=== PATIENT | female | born 1960 | race Caucasian/White ===

== ENCOUNTER 2017-04-02 19:49 | Emergency (ER) | payer BC ==
[2017-04-02 20:09] VITALS: BP 138/91
[2017-04-02] MEDS ORDERED: Triamcinolone Acetonide 40 MG/ML 1 ML MDV INJECT ONE (20:28)
--- NOTE | 2017-04-03 06:29 | EDM.PDOC ---
ED HPI GENERAL MEDICAL PROBLEM - General Chief Complaint: Upper Extremity Injury/Pain Stated Complaint: left shoulder pain Time Seen by Provider: 04/02/17 19:55 Source of Information: Reports: Patient History Limitations: Reports: No Limitations - History of Present Illness INITIAL COMMENTS - FREE TEXT/NARRATIVE: Pt. states that she had a pneumococcal vaccine in the L upper arm earlier today. She states that she now in experiencing discomfort and difficulty moving the R arm. No fever or chills. No cellulitis. She states that she has never had issues with post-immunization discomfort in the past. Onset: Today Location: Reports: Upper Extremity, Left Quality: Reports: Ache Severity: Moderate Improves with: Reports: Rest Worsens with: Reports: Movement Associated Symptoms: Reports: No Other Symptoms Left Shoulder Pain Score (Numeric/FACES): 8 - Related Data Allergies Allergy/AdvReac Type Severity Reaction Status Date / Time rosuvastatin calcium Allergy Cannot Verified 04/02/17 20:03 [From Crestor] Remember atorvastatin calcium AdvReac Muscle Verified 04/02/17 20:03 [From Lipitor] Aches cats Allergy Anaphylactic Uncoded 04/02/17 20:03 Shock Enviromental Allergy Cannot Uncoded 04/02/17 20:03 Remember Home Meds: Home Meds Ascorbic Acid [Vitamin C] 1,000 mg PO DAILY 03/18/15 [History] Aspirin 81 mg PO DAILY 03/18/15 [History] Baclofen [Baclofen] 1 tab PO TID 03/18/15 [History] Cholecalciferol (Vitamin D3) [Vitamin D3] 2 tab PO DAILY 03/18/15 [History] Cyanocobalamin (Vitamin B-12) [B-12] 1,000 mcg PO DAILY 03/18/15 [History] Hydrochlorothiazide [Hydrochlorothiazide] 1 tab PO DAILY 03/18/15 [History] Lidocaine 5% [Lidoderm 5%] 700 mg TOP Q24H PRN 03/18/15 [History] Naproxen 500 mg PO BID 03/18/15 [History] Nebivolol HCl [Bystolic] 5 mg PO DAILY 03/18/15 [History] [place]-3 Fatty Acids [B[place]ield-3] 2 cap PO DAILY 03/18/15 [History] valACYclovir HCl [valACYclovir] 1 tab PO BID PRN 03/18/15 [History] Morphine Sulfate 1 tab PO QID PRN 04/02/17 [History] Morphine [MS Contin] 1 tab PO DAILY 04/02/17 [History] Past Medical History HEENT History: Reports: Allergic Rhinitis Cardiovascular History: Reports: Blood Clots/VTE/DVT, High Cholesterol Other Cardiovascular History: Varicose veins Respiratory History: Gastrointestinal History: Reports: Colon Polyp, Hemorrhoids Other Gastrointestinal History: Colitis. Gastric ulcer Genitourinary History: Reports: None PRIEST History: Reports: Musculoskeletal History: Reports: Back Pain, Chronic, Osteoarthritis Other Musculoskeletal History: Varicose vein surgery Neurological History: Reports: None Psychiatric History: Reports: Anxiety Endocrine/Metabolic History: Reports: Obesity/BMI 30+ Hematologic History: Reports: None Other Hematologic History: HX sepsis Oncologic (Cancer) History: Reports: None Dermatologic History: Reports: None - Past Surgical History Head Surgeries/Procedures: Reports: None HEENT Surgical History: Reports: Naso-Sinus Surgery GI Surgical History: Reports: Colonoscopy, Lysis of Adhesions, Polypectomy Female Surgical History: Reports: Hysterectomy Neurological Surgical History: Reports: Lumbar Spine, Thoracic Spine Musculoskeletal Surgical History: Reports: Joint Replacement, Knee Replacement Social & Family History - Tobacco Use Smoking Status *Q: Current Every Day Smoker Years of Tobacco use: 20 Packs/Tins Daily: 0.5 Used Tobacco, but Quit: Yes Second Hand Smoke Exposure: No - Alcohol Use Days Per Week of Alcohol Use: 2 Number of Drinks Per Day: 1 Total Drinks Per Week: 2 - Recreational Drug Use Recreational Drug Use: No Drug Use in Last 12 Months: No Review of Systems - Review of Systems Review Of Systems: See Below Constitutional: Reports: No Symptoms Mouth/Throat: Reports: No Symptoms Respiratory: Reports: No Symptoms Cardiovascular: Reports: No Symptoms GI/Abdominal: Reports: No Symptoms Genitourinary: Reports: No Symptoms Musculoskeletal: Reports: Arm Pain, Muscle Stiffness Skin: Reports: No Symptoms Neurological: Reports: No Symptoms Psychiatric: Reports: No Symptoms ED EXAM, GENERAL - Physical Exam Exam: See Below Exam Limited By: No Limitations General Appearance: Alert, WD/WN, No Apparent Distress Neck: Normal Inspection, Supple, Non-Tender, Full Range of Motion Respiratory/Chest: No Respiratory Distress, Lungs Clear, Normal Breath Sounds, No Accessory Muscle Use, Chest Non-Tender Cardiovascular: Normal Peripheral Pulses, Regular Rate, Rhythm, No Edema, No Gallop, No JVD, No Murmur, No Rub Peripheral Pulses: 2+: Radial (L), Radial (R) GI/Abdominal: Normal Bowel Sounds, Soft, Non-Tender, No Organomegaly, No Distention, No Abnormal Bruit, Pelvis Stable Back Exam: Normal Inspection Extremities: Normal Inspection, Non-Tender, No Pedal Edema, Normal Capillary Refill, Limited Range of Motion Neurological: Alert, Oriented, CN II-XII Intact, Normal Cognition, Normal Gait, Normal Reflexes, No Motor/Sensory Deficits Psychiatric: Normal Affect, Normal Mood Skin Exam: Warm, Dry, Intact, Normal Color, No Rash Lymphatic: No Adenopathy Course - Vital Signs Last Recorded V/S: Last Vital Signs Temp 36.4 C 04/02/17 20:06 Pulse 70 04/02/17 20:06 Resp 18 04/02/17 20:06 BP 138/91 H 04/02/17 20:06 Pulse Ox 99 04/02/17 20:06 - Orders/Labs/Meds Meds: Medications Discontinued Medications Generic Name Dose Route Start Last Admin Trade Name Carlo PRN Reason Stop Dose Admin Triamcinolone Acetonide 40 mg 04/02/17 20:28 04/02/17 20:45 Kenalog-40 INJECT 04/02/17 20:29 40 mg ONETIME ONE Administration Departure - Departure Time of Disposition: 20:47 Disposition: Home, Self-Care 01 Condition: Good Clinical Impression: Reaction to pneumococcal immunization - Discharge Information Instructions: Post-Injection Inflammatory Reaction Referrals: Dianne Weber DO [Primary Care Provider] - Forms: ED Department Discharge Additional Instructions: Ice your arm as much as possible. Even though it hurts, it's important to move your arm as much as possible, as little at a time. Continue with naproxen and morphine for discomfort. - Assessment/Plan Assessment:: immunization reaction Plan: Pt. was reassured. Advised to use the extremity and move it as much as possible. Ice the area. Use the morphine and naproxen for pain control.
== END 2017-04-02 20:47 | disposition home or self-care (01) ==
LOC: VM.ED 19:49
DX: T88.1XXA Other complications following immunization, not elsewhere classified, initial encounter (principal); M25.512 Pain in left shoulder; F17.210 Nicotine dependence, cigarettes, uncomplicated; E78.00 Pure hypercholesterolemia, unspecified; Z79.82 Long term (current) use of aspirin; Z79.891 Long term (current) use of opiate analgesic; Z79.899 Other long term (current) drug therapy; Z88.8 Allergy status to other drugs, medicaments and biological substances; Z91.09 Other allergy status, other than to drugs and biological substances
CPT/HCPCS: 96372; 99283; J3301

== ENCOUNTER 2017-05-06 07:26 | Day surgery (SDC) | payer BC ==
[~2017-05-06 07:26] MED LIST: Lactated Ringers 1,000 ML IV SCH
[2017-05-06] MEDS ORDERED: Propofol 200 MG/20 ML SDV ONE (09:29)
[2017-05-06] MEDS ORDERED: fentaNYL 100 MCG/2 ML SDV ONE (09:29)
[2017-05-06 10:11] VITALS: BP 125/75
--- NOTE | 2017-05-07 09:36 | OR ---
PREOPERATIVE DIAGNOSIS: History of colon polyps. POSTOPERATIVE DIAGNOSIS: History of colon polyps. PROCEDURE PERFORMED: Aborted colonoscopy. INDICATION: The patient is a 56-year-old female who presents for repeat colonoscopy several years after polyps were found. PROCEDURE DETAILS: This was done in the procedure room. Sedation was given per Anesthesia. She was placed in left lateral position. First, a rectal exam was done. There were very large pieces of hard stool within the lower rectum. I did attempt to place the scope into the rectum. I was able to get about 1/[address] up to the rectum before I again ran into multiple large pieces of hard stool. Due to the amount of stool present, I was really unable to find the pathway further into the rectum and I felt that proceeding any further at this point was as the visualization be amenable at this point. The procedure was aborted. BKD: 05/06/2017 09:52:34 MODL: 05/06/2017 15:09:33 /[id number]
== END 2017-05-06 10:55 | disposition home or self-care (01) ==
LOC: VM.SDS 07:26
PROVIDERS: ATTEND Surgery
DX: Z12.11 Encounter for screening for malignant neoplasm of colon (principal); I10 Essential (primary) hypertension; E78.5 Hyperlipidemia, unspecified; Z86.010 Personal history of colon polyps; Z88.8 Allergy status to other drugs, medicaments and biological substances; Z79.891 Long term (current) use of opiate analgesic; Z90.710 Acquired absence of both cervix and uterus; Z79.899 Other long term (current) drug therapy; F17.210 Nicotine dependence, cigarettes, uncomplicated
CPT/HCPCS: J2704; J3010; J7120

== ENCOUNTER 2018-04-30 11:49 | Emergency (ER) | payer BC ==
[2018-04-30 12:06] VITALS: BP 115/70
[2018-04-30] MEDS ORDERED: Sodium Chloride 0.9% 10 ML Syringe FLUSH PRN (12:10)
[2018-04-30] MEDS: Sodium Chloride 0.9% 1,000 ML IV ONE (12:37)
[2018-04-30] MEDS: Ondansetron 4 MG/2 ML SDV IVPUSH ONE (12:38)
[2018-04-30] MEDS: Pantoprazole 40 MG Vial IVPUSH ONE (12:44)
[2018-04-30 12:48] LABS: CHLORIDE,CL 105 mmol/L (98-107); SODIUM,NA 144 mmol/L (136-145)
[2018-04-30 12:50] LABS: ANION GAP 11.6 mmol/L (10-20)
[2018-04-30] MEDS: Iopamidol 612 MG/ML 100 ML Bottle IVPUSH ONE (13:05)
--- NOTE | 2018-04-30 13:21 | EDM.PDOC ---
ED HPI GENERAL MEDICAL PROBLEM - General Chief Complaint: Gastrointestinal Problem Stated Complaint: WEAK NAUSIA Time Seen by Provider: 04/30/18 12:00 Source of Information: Reports: Patient, Family History Limitations: Reports: No Limitations - History of Present Illness INITIAL COMMENTS - FREE TEXT/NARRATIVE: Patient reports that for the last month or so she has been having upset stomach with nausea and vomiting. Last week she started vomiting black liquid and upon EGD on Saturday04/28/18 she was diagnosed with ulcers. She is unsure where and how many. She is also unsure whether or not they were actively bleeding. States she is awating results for H. Pylori as well. She began to have black, tarry stools today and has had two of them. She still is nauseated with no emesis. She also complains of some SOB, dizziness and being light headed. Denies headache, chest, neck or jaw pain, no problems with urination, no complaints of diarrhea. 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 Does smoke but denies drugs or alcohol. Onset: Gradual Duration: Intermittent Location: Reports: Abdomen Quality: Reports: Ache Severity: Moderate Associated Symptoms: Reports: Nausea/Vomiting Abdomen Pain Score (Numeric/FACES): 5 - Related Data Allergies Allergy/AdvReac Type Severity Reaction Status Date / Time rosuvastatin calcium Allergy Cannot Verified 04/30/18 12:07 [From Crestor] Remember atorvastatin calcium AdvReac Muscle Verified 04/30/18 12:07 [From Lipitor] Aches cats Allergy Anaphylactic Uncoded 05/06/17 07:43 Shock Enviromental Allergy Cannot Uncoded 05/06/17 07:43 Remember Home Meds: Home Meds Aspirin 81 mg PO DAILY 03/18/15 [History] Baclofen 20 mg PO TID 03/18/15 [History] Hydrochlorothiazide 25 mg PO DAILY 03/18/15 [History] Lidocaine 5% [Lidoderm 5%] 700 mg TOP Q24H PRN 03/18/15 [History] Naproxen 500 mg PO BID 03/18/15 [History] Nebivolol HCl [Bystolic] 2.5 mg PO DAILY 03/18/15 [History] valACYclovir HCl [valACYclovir] 1 gm PO BID PRN 03/18/15 [History] Morphine Sulfate 15 mg PO QID PRN 04/02/17 [History] Morphine [MS Contin] 30 mg PO DAILY 04/02/17 [History] Ferrous Sulfate 325 mg PO BID 05/01/17 [History] Pantoprazole Sodium [Protonix] 40 mg PO DAILY 05/01/17 [History] Ascorbic Acid [Vitamin C] 100 mg PO DAILY 04/30/18 [History] Cholecalciferol (Vitamin D3) [Vitamin D3] 2,000 unit PO DAILY 04/30/18 [History] Cyanocobalamin (Vitamin B-12) [B-12] 1,000 mcg PO DAILY 04/30/18 [History] Furosemide 20 mg PO DAILY PRN 04/30/18 [History] HYDROmorphone [Dilaudid] 2 mg PO Q4H PRN 04/30/18 [History] [place]-3 Fatty Acids [[place]-3] 1 tab PO DAILY 04/30/18 [History] Omeprazole 40 mg PO DAILY 04/30/18 [History] Sucralfate 1 gm PO QID 04/30/18 [History] Past Medical History HEENT History: Reports: Allergic Rhinitis Cardiovascular History: Reports: Blood Clots/VTE/DVT, High Cholesterol, Hypertension Other Cardiovascular History: Varicose veins Respiratory History: Gastrointestinal History: Reports: Colon Polyp, Hemorrhoids Other Gastrointestinal History: Colitis. 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: Musculoskeletal History: Reports: Arthritis, Back Pain, Chronic, Fibromyalgia, Osteoarthritis Other Musculoskeletal History: Varicose vein surgery Neurological History: Reports: None Psychiatric History: Reports: Anxiety Endocrine/Metabolic History: Reports: Obesity/BMI 30+ Hematologic History: Reports: None Other Hematologic History: HX sepsis Oncologic (Cancer) History: Reports: None Dermatologic History: Reports: None - Past Surgical History Head Surgeries/Procedures: Reports: None HEENT Surgical History: Reports: Naso-Sinus Surgery Cardiovascular Surgical History: Reports: Varicose, Other (See Below) Other Cardiovascular Surgeries/Procedures: SPLENECTOMY GI Surgical History: Reports: Colonoscopy, EGD, Lysis of Adhesions, Polypectomy Other GI Surgeries/Procedures: Spleenectomy. Laparoscpy Female Surgical History: Reports: Hysterectomy Neurological Surgical History: Reports: Lumbar Spine, Thoracic Spine Other Neurological Surgeries/Procedures: REMOVED TUMOR FROM SPINAL CORD Musculoskeletal Surgical History: Reports: Joint Replacement, Knee Replacement Other Musculoskeletal Surgeries/Procedures:: Spinal cord tumor Social & Family History - Tobacco Use Smoking Status *Q: Current Every Day Smoker Years of Tobacco use: 30 Packs/Tins Daily: 1 ED ROS GENERAL - Review of Systems Review Of Systems: See Below Constitutional: Reports: Fatigue HEENT: Reports: No Symptoms Respiratory: Reports: Shortness of Breath Cardiovascular: Reports: No Symptoms Endocrine: Reports: Fatigue GI/Abdominal: Reports: Abdominal Pain, Black Stool, Nausea, Vomiting : Reports: No Symptoms Musculoskeletal: Reports: No Symptoms Skin: Reports: No Symptoms Neurological: Reports: Dizziness Psychiatric: Reports: No Symptoms Hematologic/Lymphatic: Reports: Anemia Immunologic: Reports: No Symptoms ED EXAM, GI/ABD - Physical Exam Exam: See Below Exam Limited By: No Limitations General Appearance: Alert, WD/WN, Mild Distress Eyes: Bilateral: Normal Appearance, EOMI Ears: Normal TMs Nose: Normal Inspection, Normal Mucosa, No Blood Throat/Mouth: Normal Inspection, Normal Lips, Normal Teeth, Normal Gums, Normal Oropharynx, Normal Voice, No Airway Compromise Head: Atraumatic, Normocephalic Neck: Normal Inspection, Supple, Non-Tender, Full Range of Motion Respiratory/Chest: No Respiratory Distress, Lungs Clear, Normal Breath Sounds, No Accessory Muscle Use, Chest Non-Tender Cardiovascular: Normal Peripheral Pulses, Regular Rate, Rhythm, No Edema, No Gallop, No JVD, No Murmur, No Rub GI/Abdominal Exam: Normal Bowel Sounds, Soft, Non-Tender, No Organomegaly, No Distention, No Abnormal Bruit, No Mass, Pelvis Stable Back Exam: Normal Inspection, Full Range of Motion, NT Extremities: Normal Inspection, Normal Range of Motion, Non-Tender, Normal Capillary Refill, No Pedal Edema Neurological: Alert, Oriented, CN II-XII Intact, Normal Cognition, Normal Gait, Normal Reflexes, No Motor/Sensory Deficits Psychiatric: Normal Affect, Normal Mood Skin Exam: Warm, Dry, Intact, Pallor Lymphatic: No Adenopathy EKG INTERPRETATION EKG Date: 04/30/18 Time: 12:41 Rhythm: NSR Rate (Beats/Min): 87 Petroleum: RAD-Right Petroleum Deviation P-Wave: Present QRS: Normal ST-T: Other (non specific t wave abnormality) Course - Vital Signs Last Recorded V/S: Last Vital Signs Temp 37.2 C 04/30/18 11:55 Pulse 98 04/30/18 11:55 Resp 18 04/30/18 11:55 BP 115/70 04/30/18 11:55 Pulse Ox 100 04/30/18 11:55 - Orders/Labs/Meds Orders: Active Orders 24 hr Category Date Time Status EKG 12 Lead [EKG Documentation Completion] [RC] STAT Care 04/30/18 12:11 Ordered Abdomen Pelvis w Cont [CT] Stat Exams 04/30/18 12:10 Ordered Sodium Chloride 0.9% [Normal Saline] 1,000 ml Med 04/30/18 12:31 Ordered IV ONETIME Sodium Chloride 0.9% [Saline Flush] Med 04/30/18 12:10 Ordered 10 ml FLUSH ASDIRECTED PRN Saline Lock Insert [OM.PC] Routine Oth 04/30/18 12:10 Ordered Medication Orders Sodium Chloride (Normal Saline) 1,000 mls @ 999 mls/hr IV ONETIME ONE Stop: 04/30/18 13:31 Last Admin: 04/30/18 12:37 Dose: 999 mls/hr Sodium Chloride (Saline Flush) 10 ml FLUSH ASDIRECTED PRN PRN Reason: Keep Vein Open Labs: Laboratory Tests 04/30/18 04/30/18 04/30/18 Range/Units 12:20 12:20 12:20 WBC 7.9 (4.0-10.0) x10^3/uL RBC 3.23 L (4.00-5.50) x10^6/uL Hgb 9.0 L (12.0-16.0) g/dL Hct 28.5 L (33.0-47.0) % MCV 88.2 (78.0-93.0) fL MCH 27.9 (26.0-32.0) pg MCHC 31.6 L (32.0-36.0) g/dL RDW Coeff of Chelsey 14.3 (10.0-15.0) % Plt Count 293 (130-400) x10^3/uL Add Manual Diff Yes Neutrophils % (Manual) 73 (50-80) % Lymphocytes % (Manual) 19 L (25-50) % Monocytes % (Manual) 4 (2-11) % Eosinophils % (Manual) 4 (0-4) % Platelet Estimate Adequate Hypochromasia 1+ slight H Anisocytosis 2+ moderate H PT 10.7 (9.6-11.4) SEC INR 1.0 L (2.0-3.5) Sodium 144 (136-145) mmol/L Potassium 3.6 (3.5-5.1) mmol/L Chloride 105 (98-107) mmol/L Carbon Dioxide 31 (21-32) mmol/L Anion Gap 11.6 (10-20) mmol/L BUN 33 H (7-18) mg/dL Creatinine 0.6 (0.55-1.02) mg/dL Est Cr Clr Drug Dosing TNP Estimated GFR (MDRD) > 60 Glucose 101 (74-106) mg/dL Calcium 8.5 (8.5-10.1) mg/dL Corrected Calcium 9.38 (8.5-10.1) mg/dL Magnesium 1.5 L (1.8-2.4) mg/dL Total Bilirubin 0.3 (0.2-1.0) mg/dL AST 11 L (15-37) U/L ALT 14 (14-59) U/L Alkaline Phosphatase 66 (46-116) U/L Troponin I < 0.017 (<=0.056) ng/mL C-Reactive Protein < 0.2 (<=0.9) mg/dL Total Protein 5.6 L (6.4-8.2) g/dL Albumin 2.9 L (3.4-5.0) g/dL Globulin 2.7 Albumin/Globulin Ratio 1.07 Meds: Medications Generic Name Dose Route Start Last Admin Trade Name Freq PRN Reason Stop Dose Admin Sodium Chloride 1,000 mls @ 999 mls/hr 04/30/18 12:31 04/30/18 12:37 Normal Saline IV 04/30/18 13:31 999 mls/hr ONETIME ONE Administration Sodium Chloride 10 ml 04/30/18 12:10 Saline Flush FLUSH ASDIRECTED PRN Keep Vein Open Discontinued Medications Generic Name Dose Route Start Last Admin Trade Name Freq PRN Reason Stop Dose Admin Iopamidol 100 ml 04/30/18 12:57 04/30/18 13:05 Isovue-300 (61%) IVPUSH 04/30/18 12:58 100 ml ONETIME ONE Administration Ondansetron HCl 4 mg 04/30/18 12:12 04/30/18 12:38 Zofran IVPUSH 04/30/18 12:13 4 mg ONETIME ONE Administration Pantoprazole Sodium 40 mg 04/30/18 12:10 04/30/18 12:44 Protonix Iv IVPUSH 04/30/18 12:11 40 mg ONETIME ONE Administration - Radiology Interpretation Free Text/Narrative:: CT shows some esteves colitis, no acute bleeding, masses or cysts. Zofran 4 mg ODT given for nausea Departure - Departure Time of Disposition: 14:20 Disposition: Home, Self-Care 01 Condition: Good Clinical Impression: Colitis, GI bleed, Anemia - Discharge Information *PRESCRIPTION DRUG MONITORING PROGRAM REVIEWED*: Not Applicable *COPY OF PRESCRIPTION DRUG MONITORING REPORT IN PATIENT LILIANA: Not Applicable Instructions: Gastrointestinal Bleeding Additional Instructions: Plan 1. Follow up with your primary provider to see GI for colonoscopy due to the black tarry stools today 2. Labs show a hemoglobin of 9.0, CT shows a colitis with some wall thickening and edema 3. Stay well hydrated 4. If you develop any sudden red bloody vomiting or diarrhea come into the ER immediately 5. Please call if you have any additional questions or concerns. - Problem List & Annotations (1) GI bleed SNOMED Code(s): 60003015 Code(s): K92.2 - GASTROINTESTINAL HEMORRHAGE, UNSPECIFIED Status: Acute Priority: Low Current Visit: Yes Qualifiers: GI bleed type/associated pathology: unspecified peptic ulcer Qualified Code (s): K27.4 - Chronic or unspecified peptic ulcer, site unspecified, with hemorrhage - My Orders Last 24 Hours: My Active Orders 04/30/18 12:10 Abdomen Pelvis w Cont [CT] Stat Sodium Chloride 0.9% [Saline Flush] 10 ml FLUSH ASDIRECTED PRN Saline Lock Insert [OM.PC] Routine 04/30/18 12:11 EKG 12 Lead [EKG Documentation Completion] [RC] STAT 04/30/18 12:31 Sodium Chloride 0.9% [Normal Saline] 1,000 ml IV ONETIME - Assessment/Plan Last 24 Hours: My Active Orders 04/30/18 12:10 Abdomen Pelvis w Cont [CT] Stat Sodium Chloride 0.9% [Saline Flush] 10 ml FLUSH ASDIRECTED PRN Saline Lock Insert [OM.PC] Routine 04/30/18 12:11 EKG 12 Lead [EKG Documentation Completion] [RC] STAT 04/30/18 12:31 Sodium Chloride 0.9% [Normal Saline] 1,000 ml IV ONETIME Assessment:: occult blood in stool Plan: Plan 1. Follow up with your primary provider to see GI for colonoscopy due to the black tarry stools today 2. Labs show a hemoglobin of 9.0, CT shows a colitis with some wall thickening and edema 3. Stay well hydrated 4. If you develop any sudden red bloody vomiting or diarrhea come into the ER immediately 5. Please call if you have any additional questions or concerns.
[2018-04-30] MEDS: Magnesium Chloride 64 MG Tab.ER PO ONE (13:50)
--- NOTE | 2018-04-30 13:58 | CT ---
[id number] CT/CT Abdomen Pelvis W IV EXAM: CT Abdomen Pelvis W IV CLINICAL DATA: BLOODY STOOLS,NAUSEA,VOMITING. COMPARISON STUDY: October 2017. FINDINGS: Wall thickening and edema throughout the colon extending into the rectum. Findings are consistent with mild changes of esteves colitis. No small bowel obstruction or inflammation. Appendix is normal. No abscess or lymphadenopathy. Liver, gallbladder, pancreas, adrenal glands are unremarkable. Numerous nonobstructing left renal calculi. Kidneys are otherwise unremarkable. Uterus has been resected. Adnexal regions are unremarkable. Urinary bladder is unremarkable. Spleen is absent, correlate for history of trauma or prior resection. IMPRESSION: Mild changes of pancolitis extending into the rectum as well, described in detail above. Jeremi Gustafson MD 04/30/18 [id number] Thank you for allowing us to participate in the care of your patient.
== END 2018-04-30 14:23 | disposition home or self-care (01) ==
LOC: VM.ED 11:49
DX: K52.9 Noninfective gastroenteritis and colitis, unspecified (principal); D64.9 Anemia, unspecified; F17.210 Nicotine dependence, cigarettes, uncomplicated; I10 Essential (primary) hypertension; E78.00 Pure hypercholesterolemia, unspecified; F41.9 Anxiety disorder, unspecified; Z79.899 Other long term (current) drug therapy; Z91.09 Other allergy status, other than to drugs and biological substances; Z88.8 Allergy status to other drugs, medicaments and biological substances
CPT/HCPCS: 74177; 80053; 83735; 84484; 85025; 85610; 86140; 93005; 96361; 96374; 96375; 99285; A9270; C9113; J2405; J7030; Q9967; 36415

== ENCOUNTER 2018-05-04 06:05 | Emergency (ER) | payer BC ==
[2018-05-04 11:20] LABS: ANION GAP 11.9 mmol/L (10-20); CHLORIDE,CL 103 mmol/L (98-107)
[2018-05-04 11:37] LABS: SODIUM,NA 142 mmol/L (136-145)
== END 2018-05-04 09:07 | disposition short-term general hospital (02) ==
LOC: VM.ED 06:05
DX: K92.2 Gastrointestinal hemorrhage, unspecified (principal); K51.90 Ulcerative colitis, unspecified, without complications; I10 Essential (primary) hypertension; Z98.84 Bariatric surgery status
CPT/HCPCS: 80053; 82550; 84484; 85025; 85379; 85610; 85652; 86140; 93005; 96360; 96374; 99285-25

== ENCOUNTER 2018-05-08 18:59 | Emergency (ER) | payer BC ==
[2018-05-08] MEDS ORDERED: Sodium Chloride 0.9% 10 ML Syringe FLUSH PRN (19:07)
[2018-05-08] MEDS ORDERED: HYDROmorphone 1 MG/ML Syringe IVPUSH ONE ×2 (19:09→19:59)
[2018-05-08 20:10] LABS: CHLORIDE,CL 100 mmol/L (98-107); SODIUM,NA 139 mmol/L (136-145)
[2018-05-08 20:12] LABS: ANION GAP 15.1 mmol/L (10-20)
[2018-05-08] MEDS ORDERED: LORazepam 2 MG/ML SDV IVPUSH ONE ×2 (20:23→22:01)
--- NOTE | 2018-05-08 20:25 | CR ---
[id number] RAD/RAD Chest Portable EXAM: RAD Chest Portable INDICATION: CHEST PAIN COMPARISON: None. DISCUSSION: Cardiomediastinal silhouette is normal in size and contour. No infiltrate, effusion, pneumothorax, or edema. Pulmonary hyperinflation. IMPRESSION: No acute cardiopulmonary abnormality. Bear Conway DO 05/08/182023 Thank you for allowing us to participate in the care of your patient.
[2018-05-08] MEDS ORDERED: Iopamidol 612 MG/ML 100 ML Bottle IVPUSH ONE (20:59)
--- NOTE | 2018-05-08 22:15 | EDM.PDOC ---
ED HPI GENERAL MEDICAL PROBLEM - General Chief Complaint: General Stated Complaint: Left back/leg, low abdominal pain Time Seen by Provider: 05/08/18 19:05 Source of Information: Reports: Patient History Limitations: Reports: No Limitations - History of Present Illness INITIAL COMMENTS - FREE TEXT/NARRATIVE: Pt. presents to ER with numerous complaints. Was seen in the ER on 05/04/18 and transferred to [facility] in [place] for UGI variceal bleeding. She underwent upper endoscopy and the varices were managed with clipping. Her hemoglobin prior to transfer was in the area of 6.4 and had increased to 8.5 at discharge. Pt. initially came to ER for melenic stools and fatigue. Pt. is a heavy smoker. She has a history of osteoarthritis, previous failed back surgery and chronic pain for which she takes MS contin and dilaudid. She complained of severe pain to EMS when she was having her blood pressure taken and complains of severe discomfort to her chest, back, hips, lower abdomen, and neck. She also was very tender from the area of her previous IV insertion site to her L forearm. According to her discharge summary, she was unable to ambulate. She is noted to be wearing an attend to decrease her need for ambulation. She was not placed in swingbed. She did have home PT set up. They were helping her stand on Saturday but have not been back and she has been largely immobile. She is currently being treated for a UTI diagnosed yesterday. She was prescribed Macrobid. Denies any shortness of breath. No hemoptysis. Onset: Today Onset Date: 05/08/18 Location: Reports: Neck, Chest, Abdomen, Back, Lower Extremity, Right, Generalized Quality: Reports: Ache, Throbbing Severity: Severe Improves with: Reports: Rest Worsens with: Reports: Movement left low back, hip Pain Score (Numeric/FACES): 8 - Related Data Allergies Allergy/AdvReac Type Severity Reaction Status Date / Time rosuvastatin calcium Allergy Cannot Verified 05/08/18 21:11 [From Crestor] Remember atorvastatin calcium AdvReac Muscle Verified 05/08/18 21:11 [From Lipitor] Aches cats Allergy Anaphylactic Uncoded 05/08/18 21:11 Shock Enviromental Allergy Cannot Uncoded 05/08/18 21:11 Remember Home Meds: Home Meds Aspirin 81 mg PO DAILY 03/18/15 [History] Baclofen 20 mg PO TID 03/18/15 [History] Hydrochlorothiazide 25 mg PO DAILY 03/18/15 [History] Lidocaine 5% [Lidoderm 5%] 700 mg TOP Q24H PRN 03/18/15 [History] Naproxen 500 mg PO BID 03/18/15 [History] Nebivolol HCl [Bystolic] 2.5 mg PO DAILY 03/18/15 [History] valACYclovir HCl [valACYclovir] 1 gm PO BID PRN 03/18/15 [History] Morphine Sulfate 15 mg PO QID PRN 04/02/17 [History] Morphine [MS Contin] 30 mg PO DAILY 04/02/17 [History] Ferrous Sulfate 325 mg PO BID 05/01/17 [History] Pantoprazole Sodium [Protonix] 40 mg PO DAILY 05/01/17 [History] Ascorbic Acid [Vitamin C] 100 mg PO DAILY 04/30/18 [History] Cholecalciferol (Vitamin D3) [Vitamin D3] 2,000 unit PO DAILY 04/30/18 [History] Cyanocobalamin (Vitamin B-12) [B-12] 1,000 mcg PO DAILY 04/30/18 [History] Furosemide 20 mg PO DAILY PRN 04/30/18 [History] HYDROmorphone [Dilaudid] 2 mg PO Q4H PRN 04/30/18 [History] [place]-3 Fatty Acids [[place]-3] 1 tab PO DAILY 04/30/18 [History] Omeprazole 40 mg PO DAILY 04/30/18 [History] Sucralfate 1 gm PO QID 04/30/18 [History] Past Medical History HEENT History: Reports: Allergic Rhinitis Cardiovascular History: Reports: Blood Clots/VTE/DVT, High Cholesterol, Hypertension Other Cardiovascular History: Varicose veins Respiratory History: Gastrointestinal History: Reports: Colon Polyp, Hemorrhoids Other Gastrointestinal History: Colitis. 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: Musculoskeletal History: Reports: Arthritis, Back Pain, Chronic, Fibromyalgia, Osteoarthritis Other Musculoskeletal History: Varicose vein surgery Neurological History: Reports: None Psychiatric History: Reports: Anxiety Endocrine/Metabolic History: Reports: Obesity/BMI 30+ Hematologic History: Reports: None Other Hematologic History: HX sepsis Oncologic (Cancer) History: Reports: None Dermatologic History: Reports: None - Past Surgical History Head Surgeries/Procedures: Reports: None HEENT Surgical History: Reports: Naso-Sinus Surgery Cardiovascular Surgical History: Reports: Varicose, Other (See Below) Other Cardiovascular Surgeries/Procedures: SPLENECTOMY GI Surgical History: Reports: Colonoscopy, EGD, Lysis of Adhesions, Polypectomy Other GI Surgeries/Procedures: Spleenectomy. Laparoscpy Female Surgical History: Reports: Hysterectomy Neurological Surgical History: Reports: Lumbar Spine, Thoracic Spine Other Neurological Surgeries/Procedures: REMOVED TUMOR FROM SPINAL CORD Musculoskeletal Surgical History: Reports: Joint Replacement, Knee Replacement Other Musculoskeletal Surgeries/Procedures:: Spinal cord tumor ED ROS GENERAL - Review of Systems Review Of Systems: See Below Constitutional: Reports: No Symptoms HEENT: Reports: No Symptoms Respiratory: Reports: No Symptoms, Pleuritic Chest Pain Cardiovascular: Reports: Chest Pain Endocrine: Reports: No Symptoms GI/Abdominal: Reports: Abdominal Pain : Reports: Flank Pain Musculoskeletal: Reports: Neck Pain, Arm Pain, Back Pain, Leg Pain Skin: Reports: No Symptoms, Pallor Neurological: Reports: No Symptoms Psychiatric: Reports: No Symptoms Hematologic/Lymphatic: Reports: No Symptoms Immunologic: Reports: No Symptoms ED EXAM, GENERAL - Physical Exam Exam: See Below Exam Limited By: No Limitations General Appearance: Alert, WD/WN, Severe Distress Eye Exam: Bilateral Eye: EOMI, PERRL Throat/Mouth: Normal Inspection, Normal Lips, Normal Teeth, Normal Gums, Normal Oropharynx, Normal Voice, No Airway Compromise Head: Atraumatic, Normocephalic Neck: Normal Inspection, Supple, Tender Lateral, Tender Midline Respiratory/Chest: No Respiratory Distress, Lungs Clear, Normal Breath Sounds, No Accessory Muscle Use Cardiovascular: Normal Peripheral Pulses, Regular Rate, Rhythm, No Edema, No JVD Peripheral Pulses: 4+: Radial (R) GI/Abdominal: Normal Bowel Sounds, Soft, No Organomegaly, No Mass, Tender (Female) Exam: Deferred Rectal (Female) Exam: Deferred Back Exam: Normal Inspection, Other (mid and low back pain. Diffusely tender.) Extremities: Normal Capillary Refill, Other (Mild swelling to L forearm area in area of previous IV insertion, consistent with phlebitis. Exquisitely tender. Screams in pain when any part of the extremity is touched.) Neurological: Alert, Oriented, CN II-XII Intact, Normal Cognition Psychiatric: Anxious (crying any hyperventilating on arrival), Tearful Skin Exam: Warm, Dry, Pallor Lymphatic: No Adenopathy EKG INTERPRETATION Rhythm: NSR [place]: Normal P-Wave: Present QRS: Normal ST-T: Normal QT: Normal Course - Vital Signs Last Recorded V/S: Last Vital Signs Temp 37.7 C 05/08/18 19:05 Pulse 90 05/08/18 20:45 Resp 16 05/08/18 20:45 BP 124/65 05/08/18 19:05 Pulse Ox 95 05/08/18 20:45 - Orders/Labs/Meds Orders: Active Orders 24 hr Category Date Time Status EKG Documentation Completion [RC] STAT Care 05/08/18 19:07 Active Ang Chest [CT] Stat Exams 05/08/18 20:24 Taken UA W/MICROSCOPIC [URIN] Stat Lab 05/08/18 19:08 Ordered LORazepam [Ativan] Med 05/08/18 22:01 Once 1 mg IVPUSH ONETIME ONE Sodium Chloride 0.9% [Saline Flush] Med 05/08/18 19:07 Active 10 ml FLUSH ASDIRECTED PRN Peripheral IV Insertion Adult [OM.PC] Routine Oth 05/08/18 19:07 Ordered Medication Orders Lorazepam (Ativan) 1 mg IVPUSH ONETIME ONE Stop: 05/08/18 22:02 Sodium Chloride (Saline Flush) 10 ml FLUSH ASDIRECTED PRN PRN Reason: Keep Vein Open Labs: Laboratory Tests 05/08/18 05/08/18 05/08/18 Range/Units 19:30 19:30 19:30 WBC 14.7 H (4.0-10.0) x10^3/uL RBC 3.49 L (4.00-5.50) x10^6/uL Hgb 10.0 L D (12.0-16.0) g/dL Hct 31.7 L (33.0-47.0) % MCV 90.8 (78.0-93.0) fL MCH 28.7 (26.0-32.0) pg MCHC 31.5 L (32.0-36.0) g/dL RDW Coeff of Chelsey 16.6 H (10.0-15.0) % Plt Count 481 H D (130-400) x10^3/uL Add Manual Diff Yes Neutrophils % (Manual) 76 (50-80) % Lymphocytes % (Manual) 13 L (25-50) % Monocytes % (Manual) 11 (2-11) % Hypersegmented Neuts Few H Platelet Estimate Increased H Polychromasia 1+ slight H Anisocytosis 1+ slight H PT 9.9 (9.6-11.4) SEC INR 0.9 L (2.0-3.5) D-Dimer, Quantitative 2.55 H (<=0.58) mg/LFEU Sodium 139 (136-145) mmol/L Potassium 4.1 (3.5-5.1) mmol/L Chloride 100 (98-107) mmol/L Carbon Dioxide 28 (21-32) mmol/L Anion Gap 15.1 (10-20) mmol/L BUN 15 (7-18) mg/dL Creatinine 0.8 (0.55-1.02) mg/dL Est Cr Clr Drug Dosing TNP Estimated GFR (MDRD) > 60 Glucose 113 H (74-106) mg/dL Lactic Acid (0.4-2.0) mmol/L Calcium 8.6 (8.5-10.1) mg/dL Corrected Calcium 9.64 (8.5-10.1) mg/dL Phosphorus 3.0 (2.6-4.7) mg/dL Magnesium 1.9 (1.8-2.4) mg/dL Total Bilirubin 0.4 (0.2-1.0) mg/dL AST 9 L (15-37) U/L ALT 14 (14-59) U/L Alkaline Phosphatase 86 (46-116) U/L Troponin I < 0.017 (<=0.056) ng/mL C-Reactive Protein 6.3 H (<=0.9) mg/dL Total Protein 6.3 L (6.4-8.2) g/dL Albumin 2.7 L (3.4-5.0) g/dL Globulin 3.6 Albumin/Globulin Ratio 0.75 05/08/18 Range/Units 19:30 WBC (4.0-10.0) x10^3/uL RBC (4.00-5.50) x10^6/uL Hgb (12.0-16.0) g/dL Hct (33.0-47.0) % MCV (78.0-93.0) fL MCH (26.0-32.0) pg MCHC (32.0-36.0) g/dL RDW Coeff of Chelsey (10.0-15.0) % Plt Count (130-400) x10^3/uL Add Manual Diff Neutrophils % (Manual) (50-80) % Lymphocytes % (Manual) (25-50) % Monocytes % (Manual) (2-11) % Hypersegmented Neuts Platelet Estimate Polychromasia Anisocytosis PT (9.6-11.4) SEC INR (2.0-3.5) D-Dimer, Quantitative (<=0.58) mg/LFEU Sodium (136-145) mmol/L Potassium (3.5-5.1) mmol/L Chloride (98-107) mmol/L Carbon Dioxide (21-32) mmol/L Anion Gap (10-20) mmol/L BUN (7-18) mg/dL Creatinine (0.55-1.02) mg/dL Est Cr Clr Drug Dosing Estimated GFR (MDRD) Glucose (74-106) mg/dL Lactic Acid 1.7 (0.4-2.0) mmol/L Calcium (8.5-10.1) mg/dL Corrected Calcium (8.5-10.1) mg/dL Phosphorus (2.6-4.7) mg/dL Magnesium (1.8-2.4) mg/dL Total Bilirubin (0.2-1.0) mg/dL AST (15-37) U/L ALT (14-59) U/L Alkaline Phosphatase (46-116) U/L Troponin I (<=0.056) ng/mL C-Reactive Protein (<=0.9) mg/dL Total Protein (6.4-8.2) g/dL Albumin (3.4-5.0) g/dL Globulin Albumin/Globulin Ratio Meds: Medications Generic Name Dose Route Start Last Admin Trade Name Freq PRN Reason Stop Dose Admin Lorazepam 1 mg 05/08/18 22:01 Ativan IVPUSH 05/08/18 22:02 ONETIME ONE Sodium Chloride 10 ml 05/08/18 19:07 Saline Flush FLUSH ASDIRECTED PRN Keep Vein Open Discontinued Medications Generic Name Dose Route Start Last Admin Trade Name Carlo PRN Reason Stop Dose Admin Hydromorphone HCl 1 mg 05/08/18 19:09 05/08/18 19:30 Dilaudid IVPUSH 05/08/18 19:10 1 mg ONETIME ONE Administration Hydromorphone HCl 1 mg 05/08/18 19:59 05/08/18 20:20 Dilaudid IVPUSH 05/08/18 20:00 1 mg ONETIME ONE Administration Iopamidol 100 ml 05/08/18 20:59 05/08/18 21:09 Isovue-300 (61%) IVPUSH 05/08/18 21:00 100 ml ONETIME ONE Administration Lorazepam 1 mg 05/08/18 20:23 05/08/18 20:32 Ativan IVPUSH 05/08/18 20:24 1 mg ONETIME ONE Administration - Radiology Interpretation Free Text/Narrative:: CT angiogram of the chest revealed 2 emboli in R lung base. Departure - Departure Time of Disposition: 22:23 Disposition: DC/Tfer to Acute Hospital 02 Clinical Impression: PE, Pulmonary embolism, UTI (urinary tract infection) - Discharge Information Referrals: Dianne Weber DO [Primary Care Provider] - Forms: ED Department Discharge, Interfacility Transfer EMTALA Care Plan Goals: Pt. will be transferred back to [facility]. She is quite complex, given her need for anticoagulation in light of recent GI bleeding. I spoke with Dr. Harvey, the hospitalist at [facility] who accepts the patient in transfer. She will be transferred via [facility] ground ambulance. Pt. was given numerous doses of dilaudid and ativan in ER. Discussed anticoagulating the patient with Dr. Harvey but will defer doing this as she is not hypoxic of hypotensive. - My Orders Last 24 Hours: My Active Orders 05/08/18 19:07 EKG Documentation Completion [RC] STAT Sodium Chloride 0.9% [Saline Flush] 10 ml FLUSH ASDIRECTED PRN Peripheral IV Insertion Adult [OM.PC] Routine 05/08/18 19:08 UA W/MICROSCOPIC [URIN] Stat 05/08/18 20:24 Ang Chest [CT] Stat 05/08/18 22:01 LORazepam [Ativan] 1 mg IVPUSH ONETIME ONE - Assessment/Plan Last 24 Hours: My Active Orders 05/08/18 19:07 EKG Documentation Completion [RC] STAT Sodium Chloride 0.9% [Saline Flush] 10 ml FLUSH ASDIRECTED PRN Peripheral IV Insertion Adult [OM.PC] Routine 05/08/18 19:08 UA W/MICROSCOPIC [URIN] Stat 05/08/18 20:24 Ang Chest [CT] Stat 05/08/18 22:01 LORazepam [Ativan] 1 mg IVPUSH ONETIME ONE
[2018-05-08 22:30] VITALS: BP 126/69
--- NOTE | 2018-05-09 08:27 | CT ---
[id number] CT/CTA Chest EXAM: CTA Chest CLINICAL DATA: CHEST AND BACK PAIN, POSITIVE D-DIMER. COMPARISON: Radiograph from same date. FINDINGS: LUNGS: Clear. No pneumothorax or effusion. No endobronchial lesions. HEART AND GREAT VESSELS: A subsegmental branch of the right lower pulmonary arterial system supplying the right posterior basal segment (series 4 image 66). What is described as a small subsegmental defect in the left lung base on the preliminary report is possibly a filling defect, however this is not as certain. No other evidence of filling defect to suggest embolus. Thoracic aorta is normal in caliber. No dissection. Heart is normal in size and contour. No pericardial effusion. MEDIASTINUM AND LYMPHATICS: No mediastinal or hilar lymphadenopathy. UPPER ABDOMINAL ORGANS: Unremarkable. BONES: Scattered changes of spondylosis in the spine. No fracture or osseous lesion. IMPRESSION: Acute subsegmental embolus in the posterior basal segment of the right lower lobe, described above. Jeremi Gustafson MD 05/09/18 0826 Thank you for allowing us to participate in the care of your patient.
== END 2018-05-08 22:55 | disposition short-term general hospital (02) ==
LOC: VM.ED 18:59
DX: I26.99 Other pulmonary embolism without acute cor pulmonale (principal); N39.0 Urinary tract infection, site not specified; I10 Essential (primary) hypertension; E78.00 Pure hypercholesterolemia, unspecified; F41.9 Anxiety disorder, unspecified; Z79.82 Long term (current) use of aspirin; Z79.899 Other long term (current) drug therapy; Z88.8 Allergy status to other drugs, medicaments and biological substances; Z91.09 Other allergy status, other than to drugs and biological substances
CPT/HCPCS: 36415; 51702; 71045; 71275; 80053; 81001; 83605; 83735; 84100; 84484; 85025; 85379; 85610; 86140; 93005; 96374; 96375; 96376; 99285-25; J1170; J2060; Q9967

== ENCOUNTER 2018-05-22 09:52 | Emergency (ER) | payer BC ==
[2018-05-22 10:40] VITALS: BP 114/70
--- NOTE | 2018-05-22 10:50 | EDM.PDOC ---
ED HPI GENERAL MEDICAL PROBLEM - General Chief Complaint: Back Pain or Injury Stated Complaint: ER VISIT Time Seen by Provider: 05/22/18 10:26 Source of Information: Reports: Patient, EMS Notes Reviewed, Old Records, RN, RN Notes Reviewed History Limitations: Reports: No Limitations - History of Present Illness INITIAL COMMENTS - FREE TEXT/NARRATIVE: Patient presents the emergency room at [facility] via EMS stating that "I am unable to walk." The patient states that over the past 1-2 months she has developed severe back pain that radiates to the groin and both lower legs that is causing numbness tingling paresthesias and has now progressively gotten worse and caused her not to be able to walk or put pressure on either leg. The patient did take 2 pain pills half hour prior to presentation. The patient was seen by me in the clinic yesterday and was started on gabapentin. The patient stated yesterday she had sharp shooting pains in her feet and legs. The patient was able to ambulate at that time. The patient states that her symptoms have progressively gotten worse and 6 PM last evening. The patient denies any loss of bowel or bladder function. Duration: Chronic Location: Reports: Lower Extremity, Left, Lower Extremity, Right Quality: Reports: Sharp, Stabbing, Throbbing Severity: Severe Improves with: Reports: None Worsens with: Reports: Movement Context: Denies: Activity, Sick Contact, Trauma Associated Symptoms: Reports: No Other Symptoms Treatments MEDICAL INSTRUCTOR: Reports: Other (see below) Other Treatments MEDICAL INSTRUCTOR: take took 2 pain pills Lower Back Pain Score (Numeric/FACES): 10 - Related Data Allergies Allergy/AdvReac Type Severity Reaction Status Date / Time rosuvastatin calcium Allergy Cannot Verified 05/22/18 10:15 [From Crestor] Remember atorvastatin calcium AdvReac Muscle Verified 05/22/18 10:15 [From Lipitor] Aches cats Allergy Anaphylactic Uncoded 05/22/18 10:15 Shock Enviromental Allergy Cannot Uncoded 05/22/18 10:15 Remember Home Meds: Home Meds Aspirin 81 mg PO DAILY 03/18/15 [History] Baclofen 20 mg PO TID 03/18/15 [History] Hydrochlorothiazide 25 mg PO DAILY 03/18/15 [History] Lidocaine 5% [Lidoderm 5%] 700 mg TOP Q24H PRN 03/18/15 [History] Nebivolol HCl [Bystolic] 2.5 mg PO DAILY 03/18/15 [History] valACYclovir HCl [valACYclovir] 1 gm PO BID PRN 03/18/15 [History] Morphine Sulfate 15 mg PO QID PRN 04/02/17 [History] Morphine [MS Contin] 30 mg PO DAILY 04/02/17 [History] Ferrous Sulfate 325 mg PO BID 05/01/17 [History] Pantoprazole Sodium [Protonix] 40 mg PO DAILY 05/01/17 [History] Ascorbic Acid [Vitamin C] 100 mg PO DAILY 04/30/18 [History] Cholecalciferol (Vitamin D3) [Vitamin D3] 2,000 unit PO DAILY 04/30/18 [History] Cyanocobalamin (Vitamin B-12) [B-12] 1,000 mcg PO DAILY 04/30/18 [History] Furosemide 20 mg PO DAILY PRN 04/30/18 [History] HYDROmorphone [Dilaudid] 2 mg PO Q4H PRN 04/30/18 [History] [place]-3 Fatty Acids [[place]-3] 1 tab PO DAILY 04/30/18 [History] Omeprazole 40 mg PO DAILY 04/30/18 [History] Sucralfate 1 gm PO QID 04/30/18 [History] Apixaban [Eliquis] 5 mg DAILY 05/22/18 [History] Gabapentin [Neurontin] 100 mg TID 05/22/18 [History] Past Medical History HEENT History: Reports: Allergic Rhinitis Cardiovascular History: Reports: Blood Clots/VTE/DVT, High Cholesterol, Hypertension Other Cardiovascular History: Varicose veins Respiratory History: Gastrointestinal History: Reports: Colon Polyp, Hemorrhoids Other Gastrointestinal History: Colitis. 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: Musculoskeletal History: Reports: Arthritis, Back Pain, Chronic, Fibromyalgia, Osteoarthritis Other Musculoskeletal History: Varicose vein surgery Neurological History: Reports: None Psychiatric History: Reports: Anxiety Endocrine/Metabolic History: Reports: Obesity/BMI 30+ Hematologic History: Reports: None Other Hematologic History: HX sepsis Oncologic (Cancer) History: Reports: None Dermatologic History: Reports: None - Past Surgical History Head Surgeries/Procedures: Reports: None HEENT Surgical History: Reports: Naso-Sinus Surgery Cardiovascular Surgical History: Reports: Varicose, Other (See Below) Other Cardiovascular Surgeries/Procedures: SPLENECTOMY GI Surgical History: Reports: Colonoscopy, EGD, Lysis of Adhesions, Polypectomy Other GI Surgeries/Procedures: Spleenectomy. Laparoscpy Female Surgical History: Reports: Hysterectomy Neurological Surgical History: Reports: Lumbar Spine, Thoracic Spine Other Neurological Surgeries/Procedures: REMOVED TUMOR FROM SPINAL CORD Musculoskeletal Surgical History: Reports: Joint Replacement, Knee Replacement Other Musculoskeletal Surgeries/Procedures:: Spinal cord tumor ED ROS GENERAL - Review of Systems Review Of Systems: See Below Constitutional: Denies: Fever, Chills Respiratory: Denies: Shortness of Breath, Cough Cardiovascular: Denies: Chest Pain, Palpitations GI/Abdominal: Denies: Abdominal Pain, Nausea, Stool Incontinence, Vomiting : Denies: Incontinence Skin: Reports: No Symptoms Neurological: Reports: Numbness, Paresthesia, Tingling, Difficulty Walking ED EXAM,LOWER BACK PAIN/INJURY - Physical Exam Exam: See Below Exam Limited By: No Limitations General Appearance: Alert, No Apparent Distress Respiratory/Chest: No Respiratory Distress, Lungs Clear, Normal Breath Sounds Cardiovascular: Normal Peripheral Pulses, Regular Rate, Rhythm GI/Abdominal: Normal Bowel Sounds, Soft, Non-Tender Back Exam: Normal Inspection Extremities: Pedal Edema, Limited Range of Motion. No: Joint Swelling, Increased Warmth, Redness Neurological: Alert, Oriented x 3 Skin Exam: Warm, Dry, Intact, Normal Color Course - Vital Signs Last Recorded V/S: Last Vital Signs Temp 37.4 C 05/22/18 09:52 Pulse 87 05/22/18 09:52 Resp 24 H 05/22/18 09:52 BP 114/70 05/22/18 09:52 Pulse Ox 87 L 05/22/18 09:52 Departure - Departure Time of Disposition: 10:57 Disposition: DC/Tfer to Acute Hospital 02 Condition: Good Clinical Impression: Impaired ambulation Low back pain Qualifiers: Chronicity: acute Back pain laterality: bilateral Sciatica presence: with sciatica Sciatica laterality: bilateral sciatica Qualified Code(s): M54.42 - Lumbago with sciatica, left side - Discharge Information *PRESCRIPTION DRUG MONITORING PROGRAM REVIEWED*: Not Applicable *COPY OF PRESCRIPTION DRUG MONITORING REPORT IN PATIENT LILIANA: Not Applicable Forms: Interfacility Transfer EMTALA - Problem List Review Problem List Initiated/Reviewed/Updated: Yes - Assessment/Plan Assessment:: Lower extremity swelling Painful ambulation Low back pain Plan: Case discussed with Dr. Mancia, [facility] and Dr. Padgett, Neurology. No workup advised prior to transfer as patient will need MRI at destination. Patient excepted in transfer. Also, no medication advised as the accepting providers would like to see the patient without any altering drugs on board. Patient will be sent BLS ground. Patient requesting to be transferred and agrees with the plan of care.
== END 2018-05-22 11:17 | disposition short-term general hospital (02) ==
LOC: VM.ED 10:03
DX: M54.42 Lumbago with sciatica, left side (principal); R26.89 Other abnormalities of gait and mobility; E78.00 Pure hypercholesterolemia, unspecified; I10 Essential (primary) hypertension; Z79.899 Other long term (current) drug therapy; Z88.8 Allergy status to other drugs, medicaments and biological substances; Z79.82 Long term (current) use of aspirin; Z79.01 Long term (current) use of anticoagulants
CPT/HCPCS: 99284